=== PATIENT | female | born 1970 | race Two or more races ===

== ENCOUNTER 2024-10-29 12:40 | Day surgery (SDC) | payer MEDICAID, SELFPAY ==
[2024-10-26 12:10] LABS: Basophils # (Auto) 0.0 Thou/mm3 (0.0-0.2); Basophils % (Auto) 1 % (0-2.5); Eosinophils # (Auto) 0.3 Thou/mm3 (0.0-0.5); Eosinophils % (Auto) 3 % (0-10); Hematocrit 36.8 % (36.0-46.0); Hemoglobin 11.2 g/dL (12.0-16.0); Immature Granulocytes Auto 0.02 Thou/mm3 (0.00-0.00); Lymphocytes # (Auto) 3.2 Thou/mm3 (1.0-4.8); Lymphocytes % (Auto) 36 % (10-50); Mean Corpuscular HGB Conc 30.4 g/dl (31.0-37.0); Mean Corpuscular Hemoglobin 24.5 pg (25.0-35.0); Mean Corpuscular Volume 81 fL (80-100); Monocytes # (Auto) 0.6 Thou/mm3 (0.0-0.8); Monocytes % (Auto) 7 % (0-12); Neutrophils # (Auto) 4.7 Thou/mm3 (1.8-7.7); Neutrophils % (Auto) 53 % (37-80); Nucleated Red Blood Cell # 0.00 Thou/mm3 (0.00-0.00); Nucleated Red Blood Cell % 0 /100 WBC (0); Platelet Count 296 Thou/mm3 (140-440); RDW Standard Deviation 48.8 fL (36.4-46.3); Red Blood Count 4.57 Miln/mm3 (4.00-5.20); White Blood Count 8.9 Thou/mm3 (3.6-11.0)
[2024-10-26 12:13] LABS: HCG Qualitative,Urine Negative
[2024-10-26 12:27] LABS: Alanine Aminotransferase 13 U/L (10-49); Albumin, Serum 4.3 gm/dL (3.5-5.0); Albumin/Globulin Ratio 1.5 (1.2-2.2); Alkaline Phosphatase 125 U/L (46-116); Anion Gap 9 (7-16); Aspartate Amino Transferase 16 U/L (0-34); BUN/Creatinine Ratio 20 Ratio (12-20); Bilirubin,Total 0.3 mg/dL (0.3-1.2); Blood Urea Nitrogen 16 mg/dL (9-23); Calcium 9.3 mg/dL (8.3-10.6); Calcium (Corrected) 9.3 mg/dL (8.5-10.1); Carbon Dioxide 29.6 mMol/L (20.0-31.0); Chloride 106 mMol/L (98-107); Creatinine (Component) 0.8 mg/dL (0.6-1.3); Globulin 2.9 gm/dL (2.3-3.5); Glucose 89 mg/dL (74-106); Osmolality,Calculated 288 (275-295); Potassium 4.1 mMol/L (3.4-5.1); Sodium 145 mMol/L (136-145); Total Protein 7.2 gm/dL (5.7-8.2); eGFR > 60 See Note
[2024-10-26 12:37] LABS: INR 1.0 (0.9-1.3); Partial Thromboplastin Time 36.1 Seconds (22.0-36.0); Prothrombin Time 10.7 Seconds (9.0-12.2)
[2024-10-29] VITALS (8 sets, daily range): BP systolic 95–141; BP diastolic 60–78; PULSE 63–80; RESP 14–20; TEMP 36.3–36.4; O2SAT 95–100; BMI 38.0
--- NOTE | 2024-10-29 13:21 | EKG_ITS ---
[facility] Test Date: 2024-10-29 Pat Name: TRINA TRAVIS Department: Room: - Gender: Female Data Collector: MS : 1970 Requested By: Jones Alvarado Order Number: [id number] Reading MD: Jones Alvarado Measurements Intervals [place] Rate: 73 P: 33 RI: 169 QRS: 1 QRSD: 87 T: 6 QT: 397 QTc: 439 Interpretive Statements SINUS RHYTHM No previous ECG available for comparison /store/[email or web address]/[id number]
[2024-10-29] MEDS: RINGERS LACTATED 1000 ML 1,000 ML 20 ML IV (14:42)
--- NOTE | 2024-10-29 15:04 | SUR.PHASEII ---
pt received from OR in recovery bay 4. pt asleep but responds to voice, breathing unlabored on 2l nc. v/s stable. report received from Ana Cristina BENNETT.
--- NOTE | 2024-10-29 15:45 | SUR.PHASEII ---
pt awake and alert, breathing unlabored on room air. v/s stable. pt able to ambulate to wheelchair with steady gait. d/c instructions given with daughter Remedios in room, all questions answered. pt d/c via wheelchair with all belongings.
== END 2024-10-29 15:45 | disposition home or self-care (01) ==
PROVIDERS: Anesthesiology; Referring Provider Surgery; Visit Provider Surgery
PROC: 0DJD8ZZ Inspection of Lower Intestinal Tract, Via Natural or Artificial Opening Endoscopic (ICD-10-PCS; CPT 45378; principal; 2024-10-29 14:30)
DX: Z12.11 Encounter for screening for malignant neoplasm of colon (principal); Z01.810 Encounter for preprocedural cardiovascular examination; K21.9 Gastro-esophageal reflux disease without esophagitis; E66.01 Morbid (severe) obesity due to excess calories; Z68.38 Body mass index [BMI] 38.0-38.9, adult
CPT/HCPCS: 45378; 36415; 80053; 81025; 85025; 85610; 85730; 93005; J7120